=== PATIENT | male | born 1980 | race African-American/Black ===

== ENCOUNTER 2018-09-02 08:29 | Inpatient (IN) | payer OTHER ==
[2018-09-02 09:27] VITALS: BMI 23.7
--- NOTE | 2018-09-02 09:58 | HP ---
COWS - Scale Resting Pulse: 2= [place] 101-120 Sweatin= Chills/Flushing Restless Observation: 3= Extraneous Movement Pupil Size: 1= Pupils >than Normal Bone or Joint Aches: 2= Severe Diffuse Aches Runny Nose/ Eye Tearin= Runny Nose/Eyes GI Upset > 30mins: 2= Nausea/Diarrhea Tremor Observation: 2= Slight Tremor Visible Yawning Observation: 2= >3x During Session Anxiety or Irritability: 2=Irritable/Anxious Goose Flesh Skin: 0=Smooth Skin COWS Score: 19 CIWA Score Nausea/Vomitin Muscle Tremors: 2 Anxiety: 2 Agitation: 2 Paroxysmal Sweats: 1-Minimal Palms Moist Orientation: 0-Oriented Tacttile Disturbances: 1-Very Mild Itch/Numbness Auditory Disturbances: 1-Very Mild Visual Disturbances: 0-None Headache: 2-Mild CIWA-Ar Total Score: 13 - Admission Criteria OASAS Guidelines: Admission for Medically Managed Detox: Requires at least one of the followin. CIWA greater than 12 2. Seizures within the past 24 hours 3. Delirium tremens within the past 24 hours 4. Hallucinations within the past 24 hours 5. Acute intervention needed for co occurring medical disorder 6. Acute intervention needed for co occurring psychiatric disorder 7. Severe withdrawal that cannot be handled at a lower level of care (continued vomiting, continued diarrhea, abnormal vital signs) requiring intravenous medication and/or fluids 8. Patient presents the following: CIWA greater than 12 Admission Criteria Met: Admission criteria met Admission ROS [facility] Chief Complaint: i need help to stop using heroin and alcohol Allergies/Adverse Reactions: Allergies Allergy/AdvReac Type Severity Reaction Status Date / Time No Known Allergies Allergy Verified 09/02/18 09:54 History of Present Illness: this 38 years old male with heroin and alcohol dependence,seeking detox, withdrawal symptom,never been in detox before, bipolar disorder nicotine dependence stated need help to stop using drug and alcohol Exam Limitations: No Limitations - Ebola screening Have you traveled outside of the country in the last 21 days: No (N) Have you had contact with anyone from an Ebola affected area: No Have you been sick,other than usual withdrawal symptoms: No Do you have a fever: No - Review of Systems Constitutional: Chills, Loss of Appetite, Malaise, Night Sweats, Changes in sleep, Weakness EENT: reports: Tearing, Nose Congestion Respiratory: reports: No Symptoms reported Cardiac: reports: No Symptoms Reported GI: reports: Diarrhea, Nausea, Abdominal cramping : reports: No Symptoms Reported Musculoskeletal: reports: Back Pain, Joint Pain, Muscle Pain, Joint Stiffness Integumentary: reports: Dryness Neuro: reports: Headache, Tremors Endocrine: reports: No Symptoms Reported Hematology: reports: No Symptoms Reported Psychiatric: reports: No Sypmtoms Reported, Judgement Intact, Mood/Affect Appropiate, Orientated x3, Agitated, other (bipolar disoder) Patient History - Patient Medical History Hx Anemia: No Hx Asthma: No Hx Chronic Obstructive Pulmonary Disease (COPD): No Hx Cancer: No Hx Cardiac Disorders: No Hx Congestive Heart Failure: No Hx Hypertension: No Hx Hypercholesterolemia: No Hx Pacemaker: No HX Cerebrovascular Accident: No Hx Seizures: No Hx Dementia: No Hx Diabetes: No Hx Gastrointestinal Disorders: No Hx Liver Disease: No Hx Genitourinary Disorders: No Hx Sexually Transmitted Disorders: No Hx Renal Disease (ESRD): No Hx Thyroid Disease: No Hx Human Immunodeficiency Virus (HIV): No (last 05/15 negative) Hx Hepatitis C: No Hx Depression: No Hx Suicide Attempt: No Hx Bipolar Disorder: Yes (2017 admitted for depression) Hx Schizophrenia: No Other Medical History: no suicidal,no homicidal - Patient Surgical History Past Surgical History: No - PPD History Previous Implant?: Yes Documented Results: Negative w/o proof Implanted On Prior [facility] Admission?: No PPD to be Administered?: Yes - Smoking Cessation Smoking history: Former smoker Have you smoked in the past 12 months: Yes Aproximately how many cigarettes per day: 4 If you are a former smoker, when did you quit?: 08/14 Cigars Per Day: 0 Hx Chewing Tobacco Use: No Initiated information on smoking cessation: Yes 'Breaking Loose' booklet given: 09/02/18 - Substance & Tx. History Hx Alcohol Use: Yes Hx Substance Use: Yes Substance Use Type: Alcohol, Heroin Hx Substance Use Treatment: No - Substances Abused Heroin Route: Inhalation Frequency: Daily Amount used: 5 to 10 bags Age of first use: 37 Date of Last Use: 09/01/18 Alcohol Route: Oral Frequency: Daily Amount used: 2pints of vicki aguirredkjose g Age of first use: 25 Date of Last Use: 09/01/18 Family Disease History - Family Disease History Family History: Denies Admission Physical Exam [facility] - Vital Signs Vital Signs: Vital Signs - 24 hr 09/02/18 09:24 Temperature 97.8 F Pulse Rate 102 H Respiratory 18 Rate Blood Pressure 150/97 - Physical General Appearance: Yes: Moderate Distress, Tremorous, Irritable, Sweating, Anxious HEENTM: Yes: Normal ENT Inspection, [place], Pharynx Normal Respiratory: Yes: Lungs Clear, Normal Breath Sounds, No Respiratory Distress Neck: Yes: Within Normal Limits, Supple, Trachea in good position Breast: Yes: Within Normal Limits Cardiology: Yes: Tachycardia Abdominal: Yes: Within Normal Limits, Normal Bowel Sounds, Flat, Soft Genitourinary: Yes: Within Normal Limits Back: Yes: Muscle Spasm Musculoskeletal: Yes: full range of Motion, Back pain, Joint Stiffness, Muscle Pain Extremities: Yes: Tremors 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, Fully Oriented, Alert, Motor Strength 5/5 Integumentary: Yes: Dry Lymphatic: Yes: Within Normal Limits - Diagnostic (1) Opioid dependence with withdrawal Current Visit: Yes Status: Acute (2) Alcohol dependence with uncomplicated withdrawal Current Visit: Yes Status: Acute (3) Nicotine dependence Current Visit: Yes Status: Acute (4) Bipolar disorder Current Visit: Yes Status: Acute Cleared for Admission [facility] - Detox or Rehab [facility] Level of Care: Medically Managed Detox Regimen/Protocol: Methadone/Librium [facility] Breath Alcohol Content Breath Alcohol Content: 0
[2018-09-02] MEDS ORDERED: chlordiazePOXIDE HCL 25 MG CAPSULE PO PRN (10:11)
[2018-09-02] MEDS ORDERED: MENTHOL/PHENOL 1 EACH UD MM PRN (10:11)
[2018-09-02] MEDS ORDERED: guaiFENesin/D-METHORPHAN HB 10 ML UNIT-DOSE CUPS PO PRN (10:11)
[2018-09-02] MEDS ORDERED: METHADONE HCL 10 MG TABLET (FOR DETOX USE ONLY) PO ONE ×2 (10:11→23:00)
[2018-09-02] MEDS ORDERED: MAGNESIUM HYDROX 2400MG/30ML ORAL SUSPENSION 30 ML CUP PO PRN (10:11)
[2018-09-02] MEDS ORDERED: LOPERAMIDE HCL 2 MG CAPSULE PO PRN (10:11)
[2018-09-02] MEDS ORDERED: P-EPHED 60MG/TRIPROLIDI 2.5MG TABLET PO PRN (10:11)
[2018-09-02] MEDS ORDERED: MAGNESIUM CITRATE 300 ML BOTTLE PO PRN (10:11)
[2018-09-02] MEDS ORDERED: MAG HYDROX/AL HYDROX/SIMETH 30 ML UNIT-DOSE CUP PO PRN (10:11)
[2018-09-02] MEDS: chlordiazePOXIDE HCL 25 MG CAPSULE PO SCH ×3 (11:53→22:03)
[2018-09-02] MEDS: hydrOXYzine PAMOATE 50 MG CAPSULE (FP) PO PRN (11:53)
[2018-09-02] MEDS: CYCLOBENZAPRINE HCL 10 MG TABLET (FP) PO PRN (11:53)
[2018-09-02] MEDS: ONDANSETRON *ODT* 4 MG TABLET SL PRN ×2 (11:54→22:08)
[2018-09-02] MEDS: IBUPROFEN 400 MG TABLET (FP) PO PRN ×2 (11:54→22:06)
--- NOTE | 2018-09-02 13:15 | CONSULT ---
[facility] Psychiatric Consult - Data Date of interview: 09/02/18 Admission source: Admitted as a trandfer from [facility] Identifying data: Patient appears tired and fatigued somewhat drowsy, with difficulty to arouse. He was seen bedside and provided little information. He is a38 y/o male single, unemployed, childless, homeless, with no support system. Substance Abuse History: Here for Detox due to ETOH and Heroin dependence, he experienced witdrawal symptoms. This is his first Detox admission, he drinks Vodka, Henessey daily and sniff Heroin. Patient was unable to provide more detailed information. Please refer to addiction counselor summary for more drug history Medical History: No active medcial problem Psychiatric History: Patient denies psyciatric hospitalization or treatment. Records review indicate a history of Bipolar dperession and a prior pyschiatic hospitalization in 2017. He feels depressed, but denies suicide ideation intent or plan Physical/Sexual Abuse/Trauma History: Denies history of abuse Mental Status Exam - Mental Status Exam Cognitive Function: Impaired Patient Appearance: Unkempt Mood: Apathetic, Withdrawn Affect: Blunted Patient Behavior: Passive, Sedated, Fatigued, Guarded Speech Pattern: Delayed, Slurred Voice Loudness: Moderately Soft/Quiet Thought Process: Thought Blocking Thought Disorder: Not Present Hallucinations: Denies Suicidal Ideation: Denies Homicidal Ideation: Denies Insight/Judgement: Impaired Sleep: Poorly Appetite: Fair Muscle strength/Tone: Mild Hypotonicity Gait/Station: Other Additional Comments: Unable to ascertain Psychiatric Findings - Problem List ([place] 1, 2,3) (1) Alcohol dependence with uncomplicated withdrawal Current Visit: Yes Status: Acute (2) Bipolar disorder Current Visit: Yes Status: Acute (3) Nicotine dependence Current Visit: Yes Status: Acute (4) Opioid dependence with withdrawal Current Visit: Yes Status: Acute - Initial Treatment Plan Initial Treatment Plan: Continue Detox treatment. Re-assess his mental status examination once he is fully alert and well roiented and able to participate in a meaningful mental status examination. Monitor closely
--- NOTE | 2018-09-02 17:12 | EKG ---
Test Reason : Blood Pressure : / mmHG Vent. Rate : 076 BPM Atrial Rate : 076 BPM P-R Int : 172 ms QRS Dur : 088 ms QT Int : 384 ms P-R-T Axes : 060 -40 059 degrees QTc Int : 432 ms NORMAL SINUS RHYTHM LEFT AXIS DEVIATION ABNORMAL ECG NO PREVIOUS ECGS AVAILABLE Confirmed by MD FIDENCIO, JABIER ([id number]) on 09/02/2018 5:11:40 PM Referred By: Confirmed By:JABIER NICOLAS MD
[2018-09-02] MEDS ORDERED: MELATONIN 5 MG TABLETS PO PRN (22:00)
[2018-09-02] MEDS: cloNIDine HCL 0.1 MG TABLET PO SCH (22:03)
[2018-09-02] MEDS: THIAMINE HCL 100 MG TABLET (FP) PO SCH (22:03)
[2018-09-03] MEDS: chlordiazePOXIDE HCL 25 MG CAPSULE PO SCH ×4 (06:37→23:21)
[2018-09-03] MEDS: hydrOXYzine PAMOATE 50 MG CAPSULE (FP) PO PRN ×2 (07:58→18:34)
[2018-09-03] MEDS: CYCLOBENZAPRINE HCL 10 MG TABLET (FP) PO PRN (07:59)
[2018-09-03] MEDS ORDERED: METHADONE HCL 10 MG TABLET (FOR DETOX USE ONLY) PO SCH (10:00)
[2018-09-03] MEDS: cloNIDine HCL 0.1 MG TABLET PO SCH ×2 (10:10→23:21)
[2018-09-03] MEDS: PRENATAL VITAMINS W/ FOLIC ACID TABLET (FP) PO SCH (10:10)
[2018-09-03] MEDS: ACETAMINOPHEN 325 MG TABLET (FP) PO PRN (10:13)
[2018-09-03 10:16] LABS: ALK PHOS 98 U/L (45-117); ANION GAP 7 MMOL/L (8-16); BILIRUBIN,TOTAL 2.1 mg/dL (0.2-1); BLOOD UREA NITROGEN 14 mg/dL (7-18); CALCIUM 9.2 mg/dL (8.5-10.1); CHLORIDE 100 mmol/L (98-107); CO2 31 mmol/L (21-32); GLUCOSE,RANDOM 120 mg/dL (74-106); HEMATOCRIT 45.6 % (35.4-49); HEMOGLOBIN 16.4 GM/dL (11.7-16.9); MCH 29.8 pg (25.7-33.7); MEAN CELL VOLUME 82.9 fl (80-96); MEAN PLT VOLUME 9.7 fl (7.5-11.1); PLATELET COUNT 190 K/MM3 (134-434); POTASSIUM 3.6 mmol/L (3.5-5.1); RDW 13.1 % (11.9-15.9); SGOT/AST 26 U/L (15-37); SGPT/ALT 38 U/L (13-61); SODIUM 138 mmol/L (136-145); TOT PROT 7.3 g/dl (6.4-8.2); WHITE BLOOD COUNT 9.3 K/mm3 (4.0-10.0)
--- NOTE | 2018-09-03 15:00 | PN ---
S CIWA - CIWA Score Nausea/Vomitin Muscle Tremors: 3 Anxiety: 3 Agitation: 0-Normal Activity Paroxysmal Sweats: 3 Orientation: 0-Oriented Tacttile Disturbances: 2-Mild Itch/Numbness/Burn Auditory Disturbances: 0-None Visual Disturbances: 2-Mild Sensitivity Headache: 0-None Present CIWA-Ar Total Score: 16 BHS COWS - Scale Resting Pulse: 0= IN 80 or Below Sweatin= Chills/Flushing Restless Observation: 1= Difficult to Sit Still Pupil Size: 0= Normal to Room Light Bone or Joint Aches: 2= Severe Diffuse Aches Runny Nose/ Eye Tearin= None GI Upset > 30mins: 2= Nausea/Diarrhea Tremor Observation of Outstretched Hands: 2= Slight Tremor Visible Yawning Observation: 1= 1-2x During Session Anxiety or Irritability: 2=Irritable/Anxious Goose Flesh Skin: 0=Smooth Skin COWS Score: 11 S Progress Note (SOAP) Subjective: Stomach Cramping, Nausea, Anxious, Tremors, Body Aches, Sweating, Constipation. Objective: PATIENT A & O X 3, OBSERVED AMBULATING ON UNIT. IN NO ACUTE DISTRESS. 09/03/18 14:58 Vital Signs Temperature 97.5 F L 09/03/18 10:22 Pulse Rate 67 09/03/18 14:33 Respiratory Rate 16 09/03/18 14:33 Blood Pressure 91/57 L 09/03/18 14:33 O2 Sat by Pulse Oximetry (%) Laboratory Tests 09/03/18 09/03/18 09/03/18 07:00 07:00 07:00 WBC 9.3 RBC 5.50 Hgb 16.4 Hct 45.6 MCV 82.9 MCH 29.8 MCHC 36.0 H RDW 13.1 Plt Count 190 MPV 9.7 Sodium 138 Potassium 3.6 Chloride 100 Carbon Dioxide 31 Anion Gap 7 L BUN 14 Creatinine 1.0 Creat Clearance w eGFR > 60 Random Glucose 120 H Calcium 9.2 Total Bilirubin 2.1 H AST 26 ALT 38 Alkaline Phosphatase 98 Total Protein 7.3 Albumin 4.0 RPR Titer Nonreactive LABS NOTED. Assessment: 09/03/18 14:58 WITHDRAWAL SYMPTOMS. Plan: CONTINUE DETOX. INCREASE DAILY PO FLUID INTAKE. PRN ZOFRAN SL FOR NAUSEA. PRN MOM FOR CONSTIPATION. REPEAT TOTAL BILIRUBIN LEVEL ON 09/05/2017 FOR ELEVATED ADMISSION LEVEL.
[2018-09-03] MEDS: THIAMINE HCL 100 MG TABLET (FP) PO SCH (23:21)
[2018-09-04] MEDS: hydrOXYzine PAMOATE 50 MG CAPSULE (FP) PO PRN ×3 (00:06→22:39)
[2018-09-04] MEDS: chlordiazePOXIDE HCL 25 MG CAPSULE PO SCH (06:47)
[2018-09-04] MEDS: PRENATAL VITAMINS W/ FOLIC ACID TABLET (FP) PO SCH (10:23)
[2018-09-04] MEDS: METHADONE HCL 5 MG TABLET (FOR DETOX USE ONLY) PO SCH (10:23)
[2018-09-04] MEDS: cloNIDine HCL 0.1 MG TABLET PO SCH ×2 (10:24→22:39)
[2018-09-04] MEDS: chlordiazePOXIDE 5 MG CAPSULE PO SCH ×3 (10:27→22:39)
[2018-09-04] MEDS: ONDANSETRON *ODT* 4 MG TABLET SL PRN (10:33)
--- NOTE | 2018-09-04 16:30 | PN ---
S CIWA - CIWA Score Nausea/Vomitin-No Nausea/No Vomiting Muscle Tremors: 3 Anxiety: 3 Agitation: 3 Paroxysmal Sweats: 3 Orientation: 0-Oriented Tacttile Disturbances: 2-Mild Itch/Numbness/Burn Auditory Disturbances: 0-None Visual Disturbances: 1-Very Mild Sensitivity Headache: 0-None Present CIWA-Ar Total Score: 15 BHS COWS - Scale Resting Pulse: 2= [place] 101-120 Sweatin= Chills/Flushing Restless Observation: 1= Difficult to Sit Still Pupil Size: 0= Normal to Room Light Bone or Joint Aches: 2= Severe Diffuse Aches Runny Nose/ Eye Tearin= None GI Upset > 30mins: 1= Stomach Cramp Tremor Observation of Outstretched Hands: 2= Slight Tremor Visible Yawning Observation: 1= 1-2x During Session Anxiety or Irritability: 4=Extreme Anxiety Goose Flesh Skin: 0=Smooth Skin COWS Score: 14 BHS Progress Note (SOAP) Subjective: Stomach Cramping, Anxious, Constipation, Body Aches, Sweating. Objective: PATIENT A & O X 3, OBSERVED AMBULATING ON UNIT. IN NO ACUTE DISTRESS. 09/04/18 16:31 Vital Signs Temperature 98.2 F 09/04/18 15:34 Pulse Rate 106 H 09/04/18 15:34 Respiratory Rate 18 09/04/18 15:34 Blood Pressure 121/78 09/04/18 15:34 O2 Sat by Pulse Oximetry (%) Laboratory Tests 09/03/18 09/03/18 09/03/18 07:00 07:00 07:00 WBC 9.3 RBC 5.50 Hgb 16.4 Hct 45.6 MCV 82.9 MCH 29.8 MCHC 36.0 H RDW 13.1 Plt Count 190 MPV 9.7 Sodium 138 Potassium 3.6 Chloride 100 Carbon Dioxide 31 Anion Gap 7 L BUN 14 Creatinine 1.0 Creat Clearance w eGFR > 60 Random Glucose 120 H Calcium 9.2 Total Bilirubin 2.1 H AST 26 ALT 38 Alkaline Phosphatase 98 Total Protein 7.3 Albumin 4.0 RPR Titer Nonreactive LABS NOTED. Assessment: 09/04/18 16:31 WITHDRAWAL SYMPTOMS. Plan: CONTINUE DETOX. INCREASE DAILY PO FLUID INTAKE. PRN MOM FOR CONSTIPATION.
[2018-09-04] MEDS: THIAMINE HCL 100 MG TABLET (FP) PO SCH (22:39)
[2018-09-05] MEDS: chlordiazePOXIDE 5 MG CAPSULE PO SCH (06:04)
[2018-09-05] MEDS: PRENATAL VITAMINS W/ FOLIC ACID TABLET (FP) PO SCH (10:17)
[2018-09-05] MEDS: cloNIDine HCL 0.1 MG TABLET PO SCH ×2 (10:18→23:56)
[2018-09-05] MEDS: METHADONE HCL 5 MG TABLET (FOR DETOX USE ONLY) PO SCH (10:18)
[2018-09-05] MEDS: chlordiazePOXIDE HCL 10 MG CAPSULE PO SCH ×3 (10:18→23:56)
[2018-09-05] MEDS: IBUPROFEN 400 MG TABLET (FP) PO PRN (10:21)
--- NOTE | 2018-09-05 12:09 | PN ---
BHS Progress Note (SOAP) Subjective: irritable agitation sweats anxiety Objective: 09/05/18 12:09 Vital Signs Temperature 98.1 F 09/05/18 09:34 Pulse Rate 99 H 09/05/18 09:34 Respiratory Rate 18 09/05/18 09:34 Blood Pressure 130/70 09/05/18 09:34 O2 Sat by Pulse Oximetry (%) aaox3 ambulating no acute distress Assessment: 09/05/18 12:09 withdrawal sx Plan: continue detox increase fluids
[2018-09-05] MEDS: hydrOXYzine PAMOATE 50 MG CAPSULE (FP) PO PRN (14:54)
[2018-09-05] MEDS: CYCLOBENZAPRINE HCL 10 MG TABLET (FP) PO PRN (17:24)
[2018-09-05] MEDS: THIAMINE HCL 100 MG TABLET (FP) PO SCH (23:56)
[2018-09-06] MEDS: hydrOXYzine PAMOATE 50 MG CAPSULE (FP) PO PRN ×2 (00:49→15:38)
[2018-09-06] MEDS: IBUPROFEN 400 MG TABLET (FP) PO PRN (00:49)
[2018-09-06] MEDS: chlordiazePOXIDE HCL 10 MG CAPSULE PO SCH (06:33)
[2018-09-06] MEDS ORDERED: METHADONE HCL 10 MG TABLET (FOR DETOX USE ONLY) PO SCH (10:00)
[2018-09-06] MEDS: cloNIDine HCL 0.1 MG TABLET PO SCH ×2 (10:07→22:06)
[2018-09-06] MEDS: CYCLOBENZAPRINE HCL 10 MG TABLET (FP) PO PRN ×3 (10:07→22:06)
[2018-09-06] MEDS: PRENATAL VITAMINS W/ FOLIC ACID TABLET (FP) PO SCH (10:07)
--- NOTE | 2018-09-06 10:56 | PN ---
BHS Progress Note (SOAP) Subjective: irritable agitation anxiety Objective: 09/06/18 10:55 Vital Signs Temperature 96.8 F L 09/06/18 09:40 Pulse Rate 82 09/06/18 09:40 Respiratory Rate 18 09/06/18 09:40 Blood Pressure 118/84 09/06/18 09:40 O2 Sat by Pulse Oximetry (%) aaox3 ambulating no acute distress Assessment: 09/06/18 10:56 mild withdrawals Plan: continue detox d/c in am
--- NOTE | 2018-09-06 15:53 | PN ---
BHS Progress Note Note: patient requests to see a psychiatrist for medication modification
[2018-09-06] MEDS: THIAMINE HCL 100 MG TABLET (FP) PO SCH (22:06)
[2018-09-06] MEDS: ACETAMINOPHEN 325 MG TABLET (FP) PO PRN (22:07)
[2018-09-07] MEDS ORDERED: METHADONE HCL 5 MG TABLET (FOR DETOX USE ONLY) PO SCH (06:00)
[2018-09-07 09:39] VITALS: BP 146/85; PULSE 93; TEMP 98.9
[2018-09-07] MEDS: cloNIDine HCL 0.1 MG TABLET PO SCH (10:22)
[2018-09-07] MEDS: PRENATAL VITAMINS W/ FOLIC ACID TABLET (FP) PO SCH (10:22)
--- NOTE | 2018-09-07 14:32 | DS ---
[facility] Detox Discharge Summary Admission Date: 09/02/18 Discharge Date: 09/07/18 - History Present History: Alcohol Dependence, Opioid Dependence Additional Comments: PATIENT GOING TO [facility] ([place], [place]) FOR AFTERCARE. PATIENT WAS DISCHARGED FROM DETOX UNIT IN STABLE MEDICAL CONDITION. Pertinent Past History: Nicotine Dependence, History of Bipolar Disorder. - Physical Exam Results Vital Signs: Vital Signs Temperature 98.9 F 09/07/18 09:38 Pulse Rate 93 H 09/07/18 09:38 Respiratory Rate 18 09/07/18 09:38 Blood Pressure 146/85 09/07/18 09:38 O2 Sat by Pulse Oximetry (%) Pertinent Admission Physical Exam Findings: WITHDRAWAL SYMPTOMS. Laboratory Tests 09/03/18 09/03/18 09/03/18 07:00 07:00 07:00 WBC 9.3 RBC 5.50 Hgb 16.4 Hct 45.6 MCV 82.9 MCH 29.8 MCHC 36.0 H RDW 13.1 Plt Count 190 MPV 9.7 Sodium 138 Potassium 3.6 Chloride 100 Carbon Dioxide 31 Anion Gap 7 L BUN 14 Creatinine 1.0 Creat Clearance w eGFR > 60 Random Glucose 120 H Calcium 9.2 Total Bilirubin 2.1 H AST 26 ALT 38 Alkaline Phosphatase 98 Total Protein 7.3 Albumin 4.0 RPR Titer Nonreactive LABS NOTED. - Treatment Hospital Course: Detox Protocol Followed, Detoxed Safely, Responded well, Discharged Condition Good, Rehab Referral Accepted Patient has Accepted a Rehab Referral to: [facility] ([place], [place]). - Medication Discharge Medications: Ambulatory Orders NK [No Known Home Medication] 09/02/18 - Diagnosis (1) Alcohol dependence with uncomplicated withdrawal Status: Acute (2) Bipolar disorder Status: Acute Qualifiers: Active/Remission status: remission status unspecified Qualified Code(s): F31.9 - Bipolar disorder, unspecified (3) Nicotine dependence Status: Acute Qualifiers: Nicotine product type: cigarettes Substance use status: uncomplicated Qualified Code(s): F17.210 - Nicotine dependence, cigarettes, uncomplicated (4) Opioid dependence with withdrawal Status: Acute - AMA Did Patient Leave Against Medical Advice: No
== END 2018-09-07 10:37 | disposition home or self-care (01) | DRG 773 ==
LOC: YASAS 08:29 → Y6N 10:15 → Y3N 09-06 10:55
PROC: HZ2ZZZZ Detoxification Services for Substance Abuse Treatment (ICD-10-PCS; principal; 2018-09-02)
DX: F11.23 Opioid dependence with withdrawal (principal); F10.230 Alcohol dependence with withdrawal, uncomplicated; F17.210 Nicotine dependence, cigarettes, uncomplicated; F31.9 Bipolar disorder, unspecified; R00.0 Tachycardia, unspecified
CPT/HCPCS: 36415; 80053; 85027; 86593; 93005; 93010; J0735; Q0162

== ENCOUNTER 2019-01-22 19:05 | Inpatient (IN) | payer OTHER ==
[2019-01-22 22:58] VITALS: BMI 23.3
--- NOTE | 2019-01-23 07:35 | HP ---
CIWA Score Nausea/Vomitin-Mild Nausea/No Vomiting Muscle Tremors: 4-Moderate,w/Arms Extend Anxiety: 4-Mod. Anxious/Guarded Agitation: 4-Moderately Restless Paroxysmal Sweats: 2 Orientation: 0-Oriented Tacttile Disturbances: 0-None Auditory Disturbances: 0-None Visual Disturbances: 0-None Headache: 2-Mild CIWA-Ar Total Score: 17 - Admission Criteria OASAS Guidelines: Admission for Medically Managed Detox: Requires at least one of the followin. CIWA greater than 12 2. Seizures within the past 24 hours 3. Delirium tremens within the past 24 hours 4. Hallucinations within the past 24 hours 5. Acute intervention needed for co occurring medical disorder 6. Acute intervention needed for co occurring psychiatric disorder 7. Severe withdrawal that cannot be handled at a lower level of care (continued vomiting, continued diarrhea, abnormal vital signs) requiring intravenous medication and/or fluids 8. Admission ROS [facility] Chief Complaint: Seeking admission to detox from Xanax Allergies/Adverse Reactions: Allergies Allergy/AdvReac Type Severity Reaction Status Date / Time No Known Allergies Allergy Verified 09/02/18 09:54 History of Present Illness: 38 yeasrs old male with 3 years of benzodiazepie dependence is seeking admission to detox. Patient has been in previous detox and reports insignificant period of sobriety. He denies past medical history and suicidal ideation at this time. Patient is on Methadone 160mg tablet oral with [facility]. Dose is yet to be confirmed by the nurse. Exam Limitations: No Limitations - Ebola screening Have you traveled outside of the country in the last 21 days: No (N) Have you had contact with anyone from an Ebola affected area: No Do you have a fever: No - Review of Systems Constitutional: Chills, Loss of Appetite, Malaise, Changes in sleep EENT: reports: Nose Congestion Respiratory: reports: No Symptoms reported Cardiac: reports: No Symptoms Reported GI: reports: Poor Appetite, Poor Fluid Intake, Abdominal cramping : reports: No Symptoms Reported Musculoskeletal: reports: Joint Pain, Other (he3el pain) Integumentary: reports: Dryness, Flushing Neuro: reports: Tremors Endocrine: reports: No Symptoms Reported Hematology: reports: No Symptoms Reported Psychiatric: reports: Mood/Affect Appropiate, Orientated x3, Anxious Other Systems: Reviewed and Negative Patient History - Patient Medical History Hx Anemia: No Hx Asthma: No Hx Chronic Obstructive Pulmonary Disease (COPD): No Hx Cancer: No Hx Cardiac Disorders: No Hx Congestive Heart Failure: No Hx Hypertension: No Hx Hypercholesterolemia: No Hx Pacemaker: No HX Cerebrovascular Accident: No Hx Seizures: No Hx Dementia: No Hx Diabetes: No Hx Gastrointestinal Disorders: No Hx Liver Disease: No Hx Genitourinary Disorders: No Hx Sexually Transmitted Disorders: No Hx Renal Disease (ESRD): No Hx Thyroid Disease: No Hx Human Immunodeficiency Virus (HIV): No (last 05/15 negative) Hx Hepatitis C: No Hx Depression: No Hx Suicide Attempt: No (Denies suicidal ideation at this time) Hx Bipolar Disorder: Yes (2017 admitted for depression) Hx Schizophrenia: No - Patient Surgical History Past Surgical History: No - PPD History Previous Implant?: Yes Documented Results: Negative w/proof Implanted On Prior [facility] Admission?: Yes Date: 09/04/18 PPD to be Administered?: No - Reproductive History Patient is a Female of Child Bearing Age (11 -55 yrs old): No ([place]) - Smoking Cessation Smoking history: Former smoker Have you smoked in the past 12 months: No If you are a former smoker, when did you quit?: 08/14 Cigars Per Day: 0 Hx Chewing Tobacco Use: No Initiated information on smoking cessation: No - Substance & Tx. History Hx Alcohol Use: No Hx Substance Use: Yes Substance Use Type: Tranquilizers Hx Substance Use Treatment: Yes - Substances abused Alprazolam (Xanax) Substance route: Oral Frequency: Daily Amount used: 5 to 6 of 1 mg Age of first use: 37 Date of last use: 01/20/19 Family Disease History - Family Disease History Family History: Denies Admission Physical Exam [facility] - Vital Signs Vital Signs: Vital Signs - 24 hr 01/22/19 22:46 Temperature 98.2 F Pulse Rate 81 Respiratory 19 Rate Blood Pressure 129/93 - Physical General Appearance: Yes: Moderate Distress HEENTM: Yes: Within Normal Limits Respiratory: Yes: Lungs Clear, Normal Breath Sounds, No Respiratory Distress Neck: Yes: Supple Breast: Yes: Breast Exam Deferred Cardiology: Yes: Regular Rhythm, Regular Rate Abdominal: Yes: Normal Bowel Sounds, Soft Genitourinary: Yes: Within Normal Limits Back: Yes: Normal Inspection Musculoskeletal: Yes: Within Normal Limits Extremities: Yes: Tremors Neurological: Yes: Alert, Normal Mood/Affect Integumentary: Yes: Warm Lymphatic: Yes: Within Normal Limits - Diagnostic (1) Methadone maintenance therapy patient Current Visit: Yes Status: Chronic Cleared for Admission [facility] - Detox or Rehab [facility] Level of Care: Medically Managed Detox Regimen/Protocol: Valium Inpatient Rehab Admission - Rehab Decision to Admit Inpatient rehab admission?: No
[2019-01-23] MEDS ORDERED: MAGNESIUM CITRATE 300 ML BOTTLE PO PRN (07:53)
[2019-01-23] MEDS ORDERED: MELATONIN 5 MG TABLETS PO PRN (07:53)
[2019-01-23] MEDS ORDERED: METHOCARBAMOL 500 MG TABLET PO PRN (07:53)
[2019-01-23] MEDS ORDERED: MAG HYDROX/AL HYDROX/SIMETH 30 ML UNIT-DOSE CUP PO PRN (07:53)
[2019-01-23] MEDS ORDERED: ACETAMINOPHEN 325 MG TABLET (FP) PO PRN ×2 (07:53)
[2019-01-23] MEDS ORDERED: BISMUTH SUBSALICYLATE 262 MG/15 ML BTL PO PRN (07:53)
[2019-01-23] MEDS ORDERED: diazePAM 5 MG TABLET PO PRN (07:53)
[2019-01-23] MEDS ORDERED: IBUPROFEN 400 MG TABLET (FP) PO PRN (07:53)
[2019-01-23] MEDS ORDERED: MAGNESIUM HYDROX 2400MG/30ML ORAL SUSPENSION 30 ML CUP PO PRN (07:53)
[2019-01-23] MEDS ORDERED: MENTHOL/PHENOL 1 EACH UD MM PRN (07:53)
[2019-01-23] MEDS ORDERED: hydrOXYzine PAMOATE 25 MG CAPSULE (FP) PO PRN (07:53)
[2019-01-23] MEDS ORDERED: diazePAM 5 MG TABLET PO ONE (08:05)
[2019-01-23] MEDS ORDERED: METHADONE HCL 40 MG DISPERSABLE TABLET PO ONE (10:35)
[2019-01-23] MEDS: PRENATAL VITAMINS W/ FOLIC ACID TABLET (FP) PO SCH (11:07)
--- NOTE | 2019-01-23 11:24 | PN ---
BHS CIWA - CIWA Score Nausea/Vomitin-Mild Nausea/No Vomiting Muscle Tremors: 2 Anxiety: 4-Mod. Anxious/Guarded Agitation: 3 Paroxysmal Sweats: 1-Minimal Palms Moist Orientation: 0-Oriented Tacttile Disturbances: 0-None Auditory Disturbances: 0-None Visual Disturbances: 0-None Headache: 1-Very Mild CIWA-Ar Total Score: 12 BHS Progress Note (SOAP) Subjective: left heel injurious "weeks" ago due to fall treated at ER can not remember name of the ER lef heel mild swell skin intact no redness +2 pulses Objective: 01/23/19 11:24 Vital Signs Temperature 98.8 F 01/23/19 09:07 Pulse Rate 88 01/23/19 09:07 Respiratory Rate 18 01/23/19 09:07 Blood Pressure 125/87 01/23/19 09:07 O2 Sat by Pulse Oximetry (%) 01/23/19 11:24 lab ordered for 01/24/19 Assessment: 01/23/19 11:24 withdrawal sx Plan: continue detox
[2019-01-23] MEDS: diazePAM 5 MG TABLET PO SCH ×2 (13:12→22:17)
[2019-01-23] MEDS: THIAMINE HCL 100 MG TABLET (FP) PO SCH (22:17)
[2019-01-24] MEDS: diazePAM 5 MG TABLET PO SCH ×3 (05:51→22:10)
[2019-01-24] MEDS: METHADONE HCL 40 MG DISPERSABLE TABLET PO SCH (05:51)
[2019-01-24] MEDS: PRENATAL VITAMINS W/ FOLIC ACID TABLET (FP) PO SCH (09:53)
--- NOTE | 2019-01-24 09:54 | PN ---
S CIWA - CIWA Score Nausea/Vomitin-Mild Nausea/No Vomiting Muscle Tremors: 3 Anxiety: 2 Agitation: 3 Paroxysmal Sweats: 1-Minimal Palms Moist Orientation: 0-Oriented Tacttile Disturbances: 0-None Auditory Disturbances: 0-None Visual Disturbances: 0-None Headache: 1-Very Mild CIWA-Ar Total Score: 11 BHS Progress Note (SOAP) Subjective: patient requests cane for ambulation use cane at home "sometimes" alert mild anxious otherwise doing ok Objective: 01/24/19 09:58 Vital Signs Temperature 97.1 F L 01/24/19 09:16 Pulse Rate 95 H 01/24/19 09:16 Respiratory Rate 18 01/24/19 09:16 Blood Pressure 117/88 01/24/19 09:16 O2 Sat by Pulse Oximetry (%) 01/24/19 09:59 lab pending Assessment: 01/24/19 09:59 benzo withdrawal sx Plan: continue detox
[2019-01-24] MEDS ORDERED: BACITRACIN 0.9 GM PACKET TP SCH (10:00)
[2019-01-24 10:10] LABS: ALBUMIN 3.7 g/dl (3.4-5.0); CALCIUM 8.8 mg/dL (8.5-10.1); CREATININE 1.1 mg/dL (0.55-1.3); POTASSIUM 3.8 mmol/L (3.5-5.1); TOT PROT 6.7 g/dl (6.4-8.2)
[2019-01-24 10:23] LABS: HEMATOCRIT 44.3 % (35.4-49); HEMOGLOBIN 14.9 GM/dL (11.7-16.9); MCHC 33.6 g/dl (32.0-35.9); MEAN CELL VOLUME 83.3 fl (80-96); MEAN PLT VOLUME 8.9 fl (7.5-11.1); PLATELET COUNT 184 K/MM3 (134-434); RBC 5.31 M/mm3 (4.00-5.60); RDW 13.4 % (11.9-15.9); WHITE BLOOD COUNT 6.6 K/mm3 (4.0-10.0)
[2019-01-24] MEDS: THIAMINE HCL 100 MG TABLET (FP) PO SCH (22:11)
[2019-01-24] MEDS: BACITRACIN 15 GM TUBE TOPICAL OINTMENT TP SCH (22:11)
[2019-01-25] MEDS ORDERED: diazePAM 5 MG TABLET PO ONE (06:00)
[2019-01-25] MEDS: METHADONE HCL 40 MG DISPERSABLE TABLET PO SCH (07:49)
[2019-01-25] MEDS: PRENATAL VITAMINS W/ FOLIC ACID TABLET (FP) PO SCH (10:20)
[2019-01-25] MEDS: BACITRACIN 15 GM TUBE TOPICAL OINTMENT TP SCH (10:20)
[2019-01-25 13:16] VITALS: BP 110/69; PULSE 57; TEMP 96.9
--- NOTE | 2019-01-25 14:06 | DS ---
[facility] Detox Discharge Summary Admission Date: 01/23/19 Discharge Date: 01/25/19 - History Present History: Sedative Dependence Additional Comments: PATIENT'S MEDICAL / MEDICATION HISTORY REVIEWED PRIOR TO DISCHARGE FROM DETOX UNIT. PATIENT WAS DISCHARGED FROM DETOX UNIT TO BE TAKEN OVER TO REHAB UNIT IN STABLE MEDICAL CONDITION. Pertinent Past History: History Of Bipolar Disorder, M.M.T.P. - Physical Exam Results Vital Signs: Vital Signs Temperature 96.9 F L 01/25/19 13:15 Pulse Rate 57 L 01/25/19 13:15 Respiratory Rate 18 01/25/19 13:15 Blood Pressure 110/69 01/25/19 13:15 O2 Sat by Pulse Oximetry (%) Pertinent Admission Physical Exam Findings: WITHDRAWAL SYMPTOMS. Laboratory Tests 01/24/19 01/24/19 01/24/19 07:30 07:30 07:30 WBC 6.6 RBC 5.31 Hgb 14.9 Hct 44.3 MCV 83.3 MCH 28.0 MCHC 33.6 RDW 13.4 Plt Count 184 MPV 8.9 Sodium 141 Potassium 3.8 Chloride 105 Carbon Dioxide 31 Anion Gap 6 L BUN 17 Creatinine 1.1 Est GFR (CKD-EPI)AfAm 99.57 Est GFR (CKD-EPI)NonAf 85.91 Random Glucose 88 Calcium 8.8 Total Bilirubin 1.0 AST 10 L ALT 20 Alkaline Phosphatase 97 Total Protein 6.7 Albumin 3.7 RPR Titer Nonreactive LABS NOTED. - Treatment Hospital Course: Detox Protocol Followed, Detoxed Safely, Responded well, Discharged Condition Good, Rehab Referral Accepted Patient has Accepted a Rehab Referral to: [facility] ([place], [place]). - Medication Discharge Medications: Ambulatory Orders NK [No Known Home Medication] 09/02/18 - Diagnosis (1) Sedative, hypnotic or anxiolytic dependence with withdrawal, uncomplicated Current Visit: Yes Status: Acute (2) Methadone maintenance therapy patient Current Visit: Yes Status: Chronic - AMA Did Patient Leave Against Medical Advice: No
== END 2019-01-25 14:20 | disposition home or self-care (01) | DRG 773 ==
LOC: YASAS 19:05 → Y3N 01-23 07:30
PROVIDERS: ADMIT Surgery; ATTEND Surgery
PROC: HZ2ZZZZ Detoxification Services for Substance Abuse Treatment (ICD-10-PCS; principal; 2019-01-23)
DX: F13.230 Sedative, hypnotic or anxiolytic dependence with withdrawal, uncomplicated (principal); F11.20 Opioid dependence, uncomplicated; Z87.891 Personal history of nicotine dependence
CPT/HCPCS: 36415; 80053; 85027; 86593

== ENCOUNTER 2019-01-25 14:42 | Inpatient (IN) | payer OTHER ==
--- NOTE | 2019-01-25 14:13 | HP ---
[facility] Rehab Assess/Revision - Admission History Admitted to Rehab from: [facility] Date of Admission to Rehab: 01/25/2019 - Vital signs Vital Signs: NOTED; STABLE. - Findings Detox History & Physical reviewed: Yes Concur with findings: Yes Comments/Additional Findings: PATIENT'S MEDICAL / MEDICATION HISTORY REVIEWED PRIOR TO DISCHARGE FROM DETOX UNIT. PATIENT WAS DISCHARGED FROM DETOX UNIT TO BE TAKEN OVER TO REHAB UNIT IN STABLE MEDICAL CONDITION. Inpatient Rehab Admission - Rehab Decision to Admit Inpatient rehab admission?: Yes - Initial Determination Are CD services needed?: Yes Free of communicable disease: Yes Not in need of hospitalization: Yes - Rehab Admission Criteria Previous failed treatment: Yes Poor recovery environment: Yes Comorbidities: No Lacks judgement: Yes Patient is meeting Inpatient Rehab admission criteria:: Yes
[~2019-01-25 14:42] MED LIST: ACETAMINOPHEN 325 MG TABLET (FP) PO PRN; LOPERAMIDE HCL 2 MG CAPSULE PO PRN; MAGNESIUM CITRATE 300 ML BOTTLE PO PRN; MAGNESIUM HYDROX 2400MG/30ML ORAL SUSPENSION 30 ML CUP PO PRN; MENTHOL/PHENOL 1 EACH UD MM PRN; P-EPHED 60MG/TRIPROLIDI 2.5MG TABLET PO PRN; guaiFENesin 200 MG/10 ML 10 ML UNIT-DOSE CUPS PO PRN
[2019-01-25] MEDS: THIAMINE HCL 100 MG TABLET (FP) PO SCH (21:36)
[2019-01-26] MEDS: METHADONE HCL 40 MG DISPERSABLE TABLET PO SCH (06:31)
[2019-01-26] MEDS: PRENATAL VITAMINS W/ FOLIC ACID TABLET (FP) PO SCH (09:55)
[2019-01-26] MEDS: IBUPROFEN 400 MG TABLET (FP) PO PRN (13:27)
[2019-01-26] MEDS: THIAMINE HCL 100 MG TABLET (FP) PO SCH (21:43)
[2019-01-27] MEDS: METHADONE HCL 40 MG DISPERSABLE TABLET PO SCH (06:57)
[2019-01-27] MEDS: PRENATAL VITAMINS W/ FOLIC ACID TABLET (FP) PO SCH (09:47)
[2019-01-27] MEDS: IBUPROFEN 400 MG TABLET (FP) PO PRN (10:18)
[2019-01-27] MEDS: THIAMINE HCL 100 MG TABLET (FP) PO SCH (21:38)
[2019-01-28] MEDS: METHADONE HCL 40 MG DISPERSABLE TABLET PO SCH (06:30)
[2019-01-28] MEDS: PRENATAL VITAMINS W/ FOLIC ACID TABLET (FP) PO SCH (09:46)
[2019-01-28] MEDS: TETRAHYDROZOLINE HCL EYE DROPS OU PRN (09:46)
[2019-01-28] MEDS: IBUPROFEN 400 MG TABLET (FP) PO PRN ×2 (09:48→21:13)
[2019-01-28] MEDS: THIAMINE HCL 100 MG TABLET (FP) PO SCH (21:12)
[2019-01-28] MEDS: MELATONIN 5 MG TABLETS PO PRN (21:12)
[2019-01-29] MEDS: METHADONE HCL 40 MG DISPERSABLE TABLET PO SCH (06:17)
[2019-01-29] MEDS: PRENATAL VITAMINS W/ FOLIC ACID TABLET (FP) PO SCH (09:51)
[2019-01-29] MEDS: THIAMINE HCL 100 MG TABLET (FP) PO SCH (21:25)
[2019-01-29] MEDS: CYCLOBENZAPRINE HCL 10 MG TABLET (FP) PO PRN (21:25)
[2019-01-29] MEDS: MELATONIN 5 MG TABLETS PO PRN (21:25)
[2019-01-29] MEDS: LIDOCAINE PATCH REMOVAL MC SCH (21:54)
[2019-01-30] MEDS: METHADONE HCL 40 MG DISPERSABLE TABLET PO SCH (06:20)
[2019-01-30] MEDS: PRENATAL VITAMINS W/ FOLIC ACID TABLET (FP) PO SCH (09:53)
[2019-01-30] MEDS: LIDOCAINE 5% TOPICAL PATCH TP SCH (09:54)
[2019-01-30] MEDS: CYCLOBENZAPRINE HCL 10 MG TABLET (FP) PO PRN (21:26)
[2019-01-30] MEDS: MELATONIN 5 MG TABLETS PO PRN (21:26)
[2019-01-30] MEDS: THIAMINE HCL 100 MG TABLET (FP) PO SCH (21:26)
[2019-01-30] MEDS: LIDOCAINE PATCH REMOVAL MC SCH (21:27)
[2019-01-31] MEDS: METHADONE HCL 40 MG DISPERSABLE TABLET PO SCH (06:31)
[2019-01-31] MEDS: TETRAHYDROZOLINE HCL EYE DROPS OU PRN (10:03)
[2019-01-31] MEDS: LIDOCAINE 5% TOPICAL PATCH TP SCH (10:03)
[2019-01-31] MEDS: PRENATAL VITAMINS W/ FOLIC ACID TABLET (FP) PO SCH (10:04)
[2019-01-31] MEDS: LIDOCAINE PATCH REMOVAL MC SCH (21:34)
[2019-01-31] MEDS: CYCLOBENZAPRINE HCL 10 MG TABLET (FP) PO PRN (21:34)
[2019-01-31] MEDS: THIAMINE HCL 100 MG TABLET (FP) PO SCH (21:34)
[2019-01-31] MEDS: MELATONIN 5 MG TABLETS PO PRN (21:34)
[2019-02-01] MEDS: METHADONE HCL 40 MG DISPERSABLE TABLET PO SCH (06:27)
[2019-02-01] MEDS: LIDOCAINE 5% TOPICAL PATCH TP SCH (09:46)
[2019-02-01] MEDS: TETRAHYDROZOLINE HCL EYE DROPS OU PRN ×2 (09:46→21:21)
[2019-02-01] MEDS: PRENATAL VITAMINS W/ FOLIC ACID TABLET (FP) PO SCH (09:46)
[2019-02-01] MEDS: THIAMINE HCL 100 MG TABLET (FP) PO SCH (21:21)
[2019-02-01] MEDS: CYCLOBENZAPRINE HCL 10 MG TABLET (FP) PO PRN (21:22)
[2019-02-01] MEDS: MELATONIN 5 MG TABLETS PO PRN (21:22)
[2019-02-01] MEDS: LIDOCAINE PATCH REMOVAL MC SCH (23:46)
[2019-02-02] MEDS: METHADONE HCL 40 MG DISPERSABLE TABLET PO SCH (05:57)
[2019-02-02] MEDS: LIDOCAINE 5% TOPICAL PATCH TP SCH (10:36)
[2019-02-02] MEDS: PRENATAL VITAMINS W/ FOLIC ACID TABLET (FP) PO SCH (10:36)
[2019-02-02] MEDS: TETRAHYDROZOLINE HCL EYE DROPS OU PRN ×2 (10:37→21:44)
[2019-02-02] MEDS: THIAMINE HCL 100 MG TABLET (FP) PO SCH (21:44)
[2019-02-02] MEDS: MELATONIN 5 MG TABLETS PO PRN (21:44)
[2019-02-02] MEDS: CYCLOBENZAPRINE HCL 10 MG TABLET (FP) PO PRN (21:45)
[2019-02-02] MEDS: LIDOCAINE PATCH REMOVAL MC SCH (21:46)
[2019-02-03] MEDS: METHADONE HCL 40 MG DISPERSABLE TABLET PO SCH (06:16)
[2019-02-03] MEDS: LIDOCAINE 5% TOPICAL PATCH TP SCH (10:00)
[2019-02-03] MEDS: PRENATAL VITAMINS W/ FOLIC ACID TABLET (FP) PO SCH (10:01)
[2019-02-03] MEDS: TETRAHYDROZOLINE HCL EYE DROPS OU PRN (21:27)
[2019-02-03] MEDS: MELATONIN 5 MG TABLETS PO PRN (21:28)
[2019-02-03] MEDS: THIAMINE HCL 100 MG TABLET (FP) PO SCH (21:28)
[2019-02-03] MEDS: CYCLOBENZAPRINE HCL 10 MG TABLET (FP) PO PRN (21:28)
[2019-02-03] MEDS: LIDOCAINE PATCH REMOVAL MC SCH (21:29)
[2019-02-04] MEDS: METHADONE HCL 40 MG DISPERSABLE TABLET PO SCH (06:27)
[2019-02-04] MEDS: LIDOCAINE 5% TOPICAL PATCH TP SCH (10:10)
[2019-02-04] MEDS: PRENATAL VITAMINS W/ FOLIC ACID TABLET (FP) PO SCH (10:11)
[2019-02-04] MEDS: MELATONIN 5 MG TABLETS PO PRN (21:22)
[2019-02-04] MEDS: LIDOCAINE PATCH REMOVAL MC SCH (21:23)
[2019-02-04] MEDS: THIAMINE HCL 100 MG TABLET (FP) PO SCH (21:23)
[2019-02-04] MEDS: hydrOXYzine PAMOATE 50 MG CAPSULE (FP) PO PRN (22:04)
[2019-02-05] MEDS: METHADONE HCL 40 MG DISPERSABLE TABLET PO SCH (06:10)
[2019-02-05] MEDS: LIDOCAINE 5% TOPICAL PATCH TP SCH (10:15)
[2019-02-05] MEDS: PRENATAL VITAMINS W/ FOLIC ACID TABLET (FP) PO SCH (10:15)
[2019-02-05] MEDS: MAG HYDROX/AL HYDROX/SIMETH 30 ML UNIT-DOSE CUP PO PRN (10:16)
[2019-02-05] MEDS: hydrOXYzine PAMOATE 50 MG CAPSULE (FP) PO PRN ×2 (10:16→21:32)
[2019-02-05] MEDS: MELATONIN 5 MG TABLETS PO PRN (21:32)
[2019-02-05] MEDS: THIAMINE HCL 100 MG TABLET (FP) PO SCH (21:32)
[2019-02-05] MEDS: LIDOCAINE PATCH REMOVAL MC SCH (21:33)
[2019-02-06] MEDS: METHADONE HCL 40 MG DISPERSABLE TABLET PO SCH (05:57)
[2019-02-06] MEDS: PRENATAL VITAMINS W/ FOLIC ACID TABLET (FP) PO SCH (09:57)
[2019-02-06] MEDS: LIDOCAINE 5% TOPICAL PATCH TP SCH (09:57)
[2019-02-06] MEDS: hydrOXYzine PAMOATE 50 MG CAPSULE (FP) PO PRN ×2 (09:58→21:29)
[2019-02-06] MEDS: MELATONIN 5 MG TABLETS PO PRN (21:29)
[2019-02-06] MEDS: THIAMINE HCL 100 MG TABLET (FP) PO SCH (21:29)
[2019-02-06] MEDS: LIDOCAINE PATCH REMOVAL MC SCH (22:25)
[2019-02-07] MEDS: METHADONE HCL 40 MG DISPERSABLE TABLET PO SCH (05:44)
[2019-02-07] MEDS: PRENATAL VITAMINS W/ FOLIC ACID TABLET (FP) PO SCH (10:08)
[2019-02-07] MEDS: hydrOXYzine PAMOATE 50 MG CAPSULE (FP) PO PRN ×2 (10:08→21:51)
[2019-02-07] MEDS: LIDOCAINE 5% TOPICAL PATCH TP SCH (10:08)
[2019-02-07] MEDS: TETRAHYDROZOLINE HCL EYE DROPS OU PRN (10:09)
[2019-02-07] MEDS: LIDOCAINE PATCH REMOVAL MC SCH (21:49)
[2019-02-07] MEDS: THIAMINE HCL 100 MG TABLET (FP) PO SCH (21:50)
[2019-02-07] MEDS: MELATONIN 5 MG TABLETS PO PRN (21:50)
[2019-02-08] MEDS: METHADONE HCL 40 MG DISPERSABLE TABLET PO SCH (06:16)
[2019-02-08] MEDS: LIDOCAINE 5% TOPICAL PATCH TP SCH (09:45)
[2019-02-08] MEDS: MAG HYDROX/AL HYDROX/SIMETH 30 ML UNIT-DOSE CUP PO PRN (09:46)
[2019-02-08] MEDS: PRENATAL VITAMINS W/ FOLIC ACID TABLET (FP) PO SCH (09:46)
[2019-02-08] MEDS: MELATONIN 5 MG TABLETS PO PRN (21:37)
[2019-02-08] MEDS: THIAMINE HCL 100 MG TABLET (FP) PO SCH (21:37)
[2019-02-08] MEDS: hydrOXYzine PAMOATE 50 MG CAPSULE (FP) PO PRN (21:37)
[2019-02-08] MEDS: LIDOCAINE PATCH REMOVAL MC SCH (21:37)
[2019-02-08] MEDS: TETRAHYDROZOLINE HCL EYE DROPS OU PRN (21:38)
[2019-02-09] MEDS: METHADONE HCL 40 MG DISPERSABLE TABLET PO SCH (06:13)
[2019-02-09] MEDS: LIDOCAINE 5% TOPICAL PATCH TP SCH (09:29)
[2019-02-09] MEDS: PRENATAL VITAMINS W/ FOLIC ACID TABLET (FP) PO SCH (09:29)
[2019-02-09] MEDS: THIAMINE HCL 100 MG TABLET (FP) PO SCH (21:34)
[2019-02-09] MEDS: MELATONIN 5 MG TABLETS PO PRN (21:34)
[2019-02-09] MEDS: LIDOCAINE PATCH REMOVAL MC SCH (21:35)
[2019-02-09] MEDS: hydrOXYzine PAMOATE 50 MG CAPSULE (FP) PO PRN (21:35)
[2019-02-10] MEDS: METHADONE HCL 40 MG DISPERSABLE TABLET PO SCH (06:37)
[2019-02-10] MEDS: PRENATAL VITAMINS W/ FOLIC ACID TABLET (FP) PO SCH (09:15)
[2019-02-10] MEDS: LIDOCAINE 5% TOPICAL PATCH TP SCH (09:15)
[2019-02-10] MEDS: LIDOCAINE PATCH REMOVAL MC SCH (21:22)
[2019-02-10] MEDS: THIAMINE HCL 100 MG TABLET (FP) PO SCH (21:22)
[2019-02-10] MEDS: hydrOXYzine PAMOATE 50 MG CAPSULE (FP) PO PRN (21:23)
[2019-02-10] MEDS: MELATONIN 5 MG TABLETS PO PRN (21:23)
[2019-02-11] MEDS: METHADONE HCL 40 MG DISPERSABLE TABLET PO SCH (06:01)
[2019-02-11] MEDS: LIDOCAINE 5% TOPICAL PATCH TP SCH (10:14)
[2019-02-11] MEDS: hydrOXYzine PAMOATE 50 MG CAPSULE (FP) PO PRN ×2 (10:15→21:29)
[2019-02-11] MEDS: PRENATAL VITAMINS W/ FOLIC ACID TABLET (FP) PO SCH (10:16)
[2019-02-11] MEDS: THIAMINE HCL 100 MG TABLET (FP) PO SCH (21:29)
[2019-02-11] MEDS: MELATONIN 5 MG TABLETS PO PRN (21:29)
[2019-02-11] MEDS: LIDOCAINE PATCH REMOVAL MC SCH (21:30)
[2019-02-12] MEDS: METHADONE HCL 40 MG DISPERSABLE TABLET PO SCH (06:19)
[2019-02-12] MEDS: hydrOXYzine PAMOATE 50 MG CAPSULE (FP) PO PRN ×2 (10:20→21:51)
[2019-02-12] MEDS: LIDOCAINE 5% TOPICAL PATCH TP SCH (10:20)
[2019-02-12] MEDS: TETRAHYDROZOLINE HCL EYE DROPS OU PRN ×2 (10:21→21:52)
[2019-02-12] MEDS: PRENATAL VITAMINS W/ FOLIC ACID TABLET (FP) PO SCH (10:21)
--- NOTE | 2019-02-12 15:24 | PN ---
[facility] Progress Note (SOAP) Subjective: Patient to be discharged tomorrow. Objective: A+Ox3, no neurological deficits noted, heart sounds regular, lungs clear, abd soft, non-tender, non-distended, +BS. 02/12/19 15:22 Vital Signs (72 hours) 02/10/19 02/10/19 02/10/19 00:30 03:30 06:42 Temperature 98.0 F Pulse Rate 69 Respiratory 16 16 16 Rate Blood Pressure 122/86 02/11/19 02/11/19 02/11/19 00:30 03:30 06:47 Temperature 98.1 F Pulse Rate 72 Respiratory 18 18 18 Rate Blood Pressure 142/93 02/12/19 02/12/19 02/12/19 03:30 07:00 07:13 Temperature 97.8 F Pulse Rate 59 L Respiratory 20 18 Rate Blood Pressure 130/100 135/94 Assessment: Medically stable for discharge Discharge Dx Opioid Dependence ETOH Dependence Benzodiazepine Dependence Plan: Patient will receive aftercare at [facility]. He does not have a PCP and does not have any home medications. Encouraged patient to secure primary care services.
[2019-02-12] MEDS: MELATONIN 5 MG TABLETS PO PRN (21:51)
[2019-02-12] MEDS: THIAMINE HCL 100 MG TABLET (FP) PO SCH (21:51)
[2019-02-12] MEDS: LIDOCAINE PATCH REMOVAL MC SCH (21:54)
[2019-02-13] MEDS ORDERED: METHADONE HCL 40 MG DISPERSABLE TABLET PO SCH (06:00)
[2019-02-13 07:05] VITALS: BP 132/89; PULSE 74; TEMP 98.1
[2019-02-13] MEDS: LIDOCAINE 5% TOPICAL PATCH TP SCH (09:58)
[2019-02-13] MEDS: TETRAHYDROZOLINE HCL EYE DROPS OU PRN (09:58)
[2019-02-13] MEDS: hydrOXYzine PAMOATE 50 MG CAPSULE (FP) PO PRN (09:58)
[2019-02-13] MEDS: PRENATAL VITAMINS W/ FOLIC ACID TABLET (FP) PO SCH (09:58)
== END 2019-02-13 10:00 | disposition home or self-care (01) | DRG 772 ==
LOC: YASAS 14:42 → Y3W 14:43
PROVIDERS: ADMIT Neuromusculoskeletal Medicine & OMM; ATTEND Neuromusculoskeletal Medicine & OMM
PROC: HZ42ZZZ Group Counseling for Substance Abuse Treatment, Cognitive-Behavioral (ICD-10-PCS; principal; 2019-01-25)
DX: F11.20 Opioid dependence, uncomplicated (principal); F10.20 Alcohol dependence, uncomplicated; F13.20 Sedative, hypnotic or anxiolytic dependence, uncomplicated; Z87.891 Personal history of nicotine dependence